=== PATIENT | female | born 1945 | race Caucasian/White ===

== ENCOUNTER 2021-09-23 06:18 | Day surgery (SDC) | payer MEDICARE, OTHER ==
[~2021-09-23 06:18] MED LIST: Midazolam 1 MG/ML 2 ML SDV ONE; Sodium Chloride 0.9% 10 ML Syringe FLUSH PRN; Sodium Chloride 0.9% 10 ML Syringe FLUSH SCH; fentaNYL 100 MCG/2 ML SDV ONE
[2021-09-23] MEDS ORDERED: fentaNYL 100 MCG/2 ML SDV IV ONE (06:19)
[2021-09-23] MEDS ORDERED: Midazolam 1 MG/ML 2 ML SDV IV ONE (06:19)
[2021-09-23] MEDS: Dextrose 5%-0.45% NaCl 1,000 ML IV SCH (06:57)
[2021-09-23] MEDS: fentaNYL 100 MCG/2 ML SDV IV ONE ×2 (07:42→07:43)
[2021-09-23] MEDS: Midazolam 1 MG/ML 2 ML SDV IV ONE ×5 (07:44→07:56)
== END 2021-09-23 10:10 | disposition home or self-care (01) ==
LOC: DL.ENDO 06:18
PROVIDERS: ATTEND Internal Medicine Gastroenterology
DX: Z12.11 Encounter for screening for malignant neoplasm of colon (principal); D12.5 Benign neoplasm of sigmoid colon; K57.30 Diverticulosis of large intestine without perforation or abscess without bleeding; K64.4 Residual hemorrhoidal skin tags; K64.8 Other hemorrhoids; E66.09 Other obesity due to excess calories; I10 Essential (primary) hypertension; E78.5 Hyperlipidemia, unspecified; F41.1 Generalized anxiety disorder; Z68.32 Body mass index [BMI] 32.0-32.9, adult; Z01.812 Encounter for preprocedural laboratory examination; Z20.822 Contact with and (suspected) exposure to COVID-19
CPT/HCPCS: 45385; J2250; J3010; J7042; U0002; 88305

== ENCOUNTER 2024-06-10 04:28 | Inpatient (IN) | payer MEDICARE, OTHER ==
[2024-06-10] MEDS: Iopamidol 612 MG/ML 100 ML Bottle IVPUSH ONE (04:01)
[2024-06-10 04:08] LABS: BASOPHILS PERCENT AUTO 0.2 % (0.0-1.0); EOSINOPHILS PERCENT AUTO 1.8 % (1.0-3.0); HEMATOCRIT 50.2 % (37.0-47.0); HEMOGLOBIN 16.5 g/dL (12.0-16.0); LYMPHOCYTES PERCENT AUTO 20.8 % (20.5-50.1); MEAN CORPUSCULAR HEMOGLOBIN 30.2 pg (27.0-34.0); MEAN CORPUSCULAR HGB CONC 32.9 g/dL (33.0-35.0); MEAN CORPUSCULAR VOLUME 91.9 fL (80-100); MONOCYTES PERCENT AUTO 7.6 % (2-8); NEUTROPHILS PERCENT AUTO 69.6 % (42.2-75.2); PLATELET COUNT,PLT 140 10^3/uL (150-450); RED BLOOD CELL COUNT 5.46 10^6/uL (4.2-5.4); WHITE BLOOD CELL COUNT,WBC 8.8 10^3/uL (5.0-10.0)
[2024-06-10] MEDS: Diphtheria,Pertussis(Acell),Tetanus Vaccine 0.5 ML Syringe IM ONE (04:37)
[2024-06-10] MEDS: Acetaminophen 325 MG Tab PO ONE (04:38)
[2024-06-10 04:47] LABS: INR 2.2 (0.9-1.2)
[2024-06-10 05:14] LABS: A/G RATIO 1.1; ALANINE AMINOTRANSFERASE,ALT 29 U/L (14-59); ALBUMIN 3.4 g/dL (3.4-5.0); ALKALINE PHOSPHATASE 65 U/L (46-116); ANION GAP 18.3 mEq/L (7-13); ASPARTATE AMNIOTRANSFERASE,AST 17 U/L (15-37); BILIRUBIN TOTAL 0.8 mg/dL (0.2-1.0); BLOOD UREA NITROGEN,BUN 25 mg/dL (7-18); BUN/CREATININE RATIO 22.7 (No establ ref range); CALCIUM 9.5 mg/dL (8.5-10.1); CARBON DIOXIDE,CO2 23 mmol/L (21-32); CHLORIDE,CL 105 mmol/L (98-107); GLUCOSE RANDOM 113 mg/dL (70-99); MAGNESIUM 1.7 mg/dL (1.8-2.4); POTASSIUM,K 4.3 mmol/L (3.5-5.1); PROTEIN TOTAL,TP 6.6 g/dL (6.4-8.2); SODIUM,NA 142 mmol/L (136-145)
[2024-06-10 05:18] LABS: ESTIMATED GFR 51 mL/min (>=60)
[2024-06-10 05:19] LABS: ETHANOL BLOOD MEDICAL < 3 mg/dL (0)
[2024-06-10] MEDS: Orphenadrine 60 MG/2 ML Inj IM ONE (05:37)
[2024-06-10] MEDS: Magnesium Sulf/Wat 2 GM/50 mL 2 GM in Premix Bag 1 BAG IV ONE (05:37)
[2024-06-10] MEDS: Lactated Ringers 1,000 ML IV SCH (06:01)
[2024-06-10] MEDS: Sodium Chloride 0.9% 1,000 ML IV ONE (06:49)
[2024-06-10 07:03] LABS: APPEARANCE,URINE CLEAR (CLEAR); BILIRUBIN,URINE NEGATIVE (NEGATIVE); GLUCOSE,URINE NEGATIVE (NEGATIVE); KETONES,URINE NEGATIVE (NEGATIVE); LEUKOCYTE ESTERASE,URINE TRACE (NEGATIVE); NITRITE,URINE NEGATIVE (NEGATIVE); OCCULT BLOOD,URINE TRACE-INTACT (NEGATIVE); PH,URINE 6.5 (5.0-9.0); PROTEIN,URINE NEGATIVE (NEGATIVE); UROBILINOGEN,URINE 0.2 mg/dL (0.2-1.0)
[2024-06-10 07:04] LABS: COLOR,URINE LIGHT YELLOW (YELLOW)
[2024-06-10 07:40] LABS: BACTERIA,URINE RARE /HPF (0-FEW/HPF); EPITHELIAL CELLS,URINE FEW /HPF (NOT SEEN); RBC,URINE 0-5 /HPF (0-5)
[2024-06-10] MEDS: Metoprolol Succinate 50 MG Tab.ER PO SCH (10:01)
[2024-06-10] MEDS: Baclofen 10 MG Tab PO SCH (10:01)
[2024-06-10] MEDS: cefTRIAXone 2 GM Vial IVPUSH SCH (10:01)
[2024-06-10] MEDS ORDERED: Sodium Chloride 0.9% 10 ML Syringe FLUSH PRN (10:20)
[2024-06-10] MEDS: Acetaminophen 325 MG Tab PO PRN (13:36)
[2024-06-10] MEDS: Magnesium Oxide 400 MG Tab PO SCH (17:28)
[2024-06-10] MEDS: ALPRAZolam 0.25 MG Tab PO PRN (18:22)
[2024-06-10] MEDS: Warfarin 2.5 MG Tab PO SCH (21:06)
[2024-06-10] MEDS: Lutein/Minerals/Vit A,C & E Tab PO SCH (21:07)
[2024-06-10] MEDS: Tolterodine 2 MG Tab PO SCH (21:07)
[2024-06-10] MEDS: Potassium Chloride 10 MEQ Tab.ER PO SCH (21:08)
[2024-06-10] MEDS: Simvastatin 10 MG Tab PO SCH (21:09)
[2024-06-10] MEDS: Sodium Chloride 0.9% 1,000 ML IV SCH (22:48)
[2024-06-11 06:57] LABS: BASOPHILS PERCENT AUTO 0.4 % (0.0-1.0); EOSINOPHILS PERCENT AUTO 4.2 % (1.0-3.0); HEMATOCRIT 50.7 % (37.0-47.0); HEMOGLOBIN 16.6 g/dL (12.0-16.0); LYMPHOCYTES PERCENT AUTO 31.6 % (20.5-50.1); MEAN CORPUSCULAR HEMOGLOBIN 30.3 pg (27.0-34.0); MEAN CORPUSCULAR HGB CONC 32.7 g/dL (33.0-35.0); MEAN CORPUSCULAR VOLUME 92.7 fL (80-100); MONOCYTES PERCENT AUTO 8.8 % (2-8); PLATELET COUNT,PLT 128 10^3/uL (150-450); RED BLOOD CELL COUNT 5.47 10^6/uL (4.2-5.4); WHITE BLOOD CELL COUNT,WBC 7.9 10^3/uL (5.0-10.0)
[2024-06-11 07:04] LABS: INR 1.9 (0.9-1.2); PROTHROMBIN TIME 19.2 SEC (9.0-12.0)
[2024-06-11 07:10] LABS: ANION GAP 18.2 mEq/L (7-13); CREATININE 1.09 mg/dL (0.55-1.02); EST CRCL DRUG DOSING (CG) 38.54 mL/min; MAGNESIUM 1.7 mg/dL (1.8-2.4); POTASSIUM,K 5.2 mmol/L (3.5-5.1)
[2024-06-11] MEDS: amLODIPine 5 MG Tab PO SCH ×2 (08:28→12:16)
[2024-06-11] MEDS: Magnesium Sulf/Wat 2 GM/50 mL 2 GM in Premix Bag 1 BAG IV ONE (08:35)
[2024-06-11] MEDS ORDERED: Cefdinir 250 MG/5 ML Susp 100 ML Bottle PO SCH (11:45)
[2024-06-11] MEDS: Warfarin 2 MG Tab PO ONE (14:14)
[2024-06-12] MEDS: Cefdinir 250 MG/5 ML Susp 100 ML Bottle PO SCH (05:19)
[2024-06-12 06:42] LABS: BASOPHILS PERCENT AUTO 0.4 % (0.0-1.0); EOSINOPHILS PERCENT AUTO 3.8 % (1.0-3.0); HEMATOCRIT 50.7 % (37.0-47.0); HEMOGLOBIN 16.7 g/dL (12.0-16.0); MEAN CORPUSCULAR HEMOGLOBIN 30.4 pg (27.0-34.0); MEAN CORPUSCULAR HGB CONC 32.9 g/dL (33.0-35.0); MEAN CORPUSCULAR VOLUME 92.3 fL (80-100); MONOCYTES PERCENT AUTO 9.2 % (2-8); NEUTROPHILS PERCENT AUTO 54.6 % (42.2-75.2); PLATELET COUNT,PLT 162 10^3/uL (150-450); RED BLOOD CELL COUNT 5.49 10^6/uL (4.2-5.4)
[2024-06-12 06:58] LABS: ANION GAP 14.8 mEq/L (7-13); CALCIUM 9.7 mg/dL (8.5-10.1); CREATININE 1.24 mg/dL (0.55-1.02); EST CRCL DRUG DOSING (CG) 33.87 mL/min; MAGNESIUM 1.7 mg/dL (1.8-2.4); POTASSIUM,K 4.8 mmol/L (3.5-5.1)
[2024-06-12 08:40] LABS: INR 2.3 (0.9-1.2); PROTHROMBIN TIME 22.8 SEC (9.0-12.0)
[2024-06-12] MEDS: Magnesium Sulfate/D5W 1 GM/100 ML BAG IV ONE (10:46)
[2024-06-12] MEDS: Sodium Chloride 0.9% 1,000 ML IV SCH (10:49)
[2024-06-13 07:03] LABS: ANION GAP 15.4 mEq/L (7-13); CALCIUM 9.6 mg/dL (8.5-10.1); CREATININE 1.09 mg/dL (0.55-1.02); EST CRCL DRUG DOSING (CG) 38.54 mL/min; MAGNESIUM 1.7 mg/dL (1.8-2.4); POTASSIUM,K 4.4 mmol/L (3.5-5.1)
[2024-06-13 09:00] LABS: INR 2.4 (0.9-1.2); PROTHROMBIN TIME 23.3 SEC (9.0-12.0)
[2024-06-13] MEDS: Magnesium Sulf/Wat 2 GM/50 mL 2 GM in Premix Bag 1 BAG IV ONE (10:08)
[2024-06-14 06:51] LABS: CREATININE 1.1 mg/dL (0.55-1.02); EST CRCL DRUG DOSING (CG) 38.19 mL/min; MAGNESIUM 1.8 mg/dL (1.8-2.4)
== END 2024-06-14 09:00 | DRG 605 ==
LOC: DL.ED 04:28 → DL.MS 06:14 → OBSVTOIN 06-11 14:04
PROVIDERS: ADMIT Internal Medicine; ATTEND Internal Medicine
DX: S00.31XA Abrasion of nose, initial encounter (principal); E87.20 Acidosis, unspecified; G81.94 Hemiplegia, unspecified affecting left nondominant side; N39.0 Urinary tract infection, site not specified; N17.9 Acute kidney failure, unspecified; H81.12 Benign paroxysmal vertigo, left ear; E87.6 Hypokalemia; E86.0 Dehydration; B96.29 Other Escherichia coli [E. coli] as the cause of diseases classified elsewhere; M54.2 Cervicalgia; H54.7 Unspecified visual loss; G89.29 Other chronic pain; F32.A Depression, unspecified; F41.9 Anxiety disorder, unspecified; E83.42 Hypomagnesemia; I10 Essential (primary) hypertension; R73.9 Hyperglycemia, unspecified; W18.30XA Fall on same level, unspecified, initial encounter; Z86.73 Personal history of transient ischemic attack (TIA), and cerebral infarction without residual deficits; E78.00 Pure hypercholesterolemia, unspecified; R26.2 Difficulty in walking, not elsewhere classified; E66.9 Obesity, unspecified; Z90.710 Acquired absence of both cervix and uterus; Z79.1 Long term (current) use of non-steroidal anti-inflammatories (NSAID); Z88.2 Allergy status to sulfonamides; Z79.01 Long term (current) use of anticoagulants; Z86.19 Personal history of other infectious and parasitic diseases; Z90.89 Acquired absence of other organs; Z98.890 Other specified postprocedural states; Z88.8 Allergy status to other drugs, medicaments and biological substances; Z68.32 Body mass index [BMI] 32.0-32.9, adult; Z79.899 Other long term (current) drug therapy; Z79.02 Long term (current) use of antithrombotics/antiplatelets; W19.XXXA Unspecified fall, initial encounter
CPT/HCPCS: 36415; 70450; 70486; 71260; 72125; 74177; 80048; 80053; 80307; 81001; 82565; 82947; 83735; 84132; 84484; 85025; 85610; 87086; 87088; 87186; 90715; 93005; 93010; 97161-GP; 97165-GO; 97530-GO; 97530-GP; 99223; 99232; 99239; 99284; A9270-GY; J0696; J2360; J3475; J7030; J7120; Q9967